=== PATIENT | male | born 1955 | race African-American/Black ===

== ENCOUNTER 2018-12-24 21:39 | Emergency (ER) | payer BC ==
[~2018-12-24 21:39] MED LIST: ISOVUE-370 76%-LOCM 1 ML ONE
[2018-12-24 22:56] LABS: #Basophils 0.1 thou/uL (0.0-0.2); #Eosinphils 0.4 thou/uL (0.0-0.7); #Lymphocytes 2.7 thou/uL (1.20-3.40); #Neutrophils 5.6 thou/uL (1.40-6.50); %Basophils 0.9 % (0.0-1.0); %Eosinophils 3.7 % (0.0-10.0); %Lymphocytes 27.6 % (21.0-51.0); %Monocytes 10.2 % (0.0-10.0); %Neutrophils 57.7 % (42.0-75.0); Hemoglobin 8.7 g/dL (14.0-18.0); Mean Corpuscular HGB CONC 33.3 g/dL (32.0-36.0); Mean Corpuscular Hemoglobin 32.1 pg (27.0-31.0); Mean Corpuscular Volume 96.4 fL (78.0-98.0); Mean Platelet Volume 7.5 fL (7.4-10.4); Platelet Count 253 thou/uL (130-400); RBC Distribution Width 11.3 % (11.5-14.5); Red Blood Cell (RBC) Count 2.72 mill/uL (4.70-6.10); White Blood Cell (WBC) Count 9.7 thou/uL (4.8-10.8)
[2018-12-24 23:16] LABS: ALT (SGPT) 36 U/L (8-55); AST (SGOT) 36 U/L (5-34); Albumin 3.5 g/dL (3.4-4.8); Alkaline Phosphatase 113 U/L (40-150); Anion Gap 12 mmol/L (10-20); BUN (Urea Nitrogen) 10 mg/dL (8.4-25.7); Bilirubin, Total 1.4 mg/dL (0.2-1.2); Calc. Creatinine Clearance 0 mL/min (70-130); Calcium 9.2 mg/dL (7.8-10.44); Carbon Dioxide 27 mmol/L (23-31); Chloride 101 mmol/L (98-107); Estimated GFR-MDRD Greater than 90; Globulin 3.2 g/dL (2.4-3.5); Glucose 115 mg/dL (80-115); Potassium 4.4 mmol/L (3.5-5.1); Protein, Total 6.7 g/dL (5.8-8.1); Sodium 136 mmol/L (136-145)
--- NOTE | 2018-12-24 23:59 | ULT ---
VENOUS ULTRASOUND OF THE RIGHT LOWER EXTREMITY: History: Right leg pain, edema. Right knee replacement one week ago. Technique: Grayscale, color flow, and spectral doppler imaging of the deep venous system of the right lower extremity was performed. FINDINGS: There is good flow, compression, and augmentation of the right common femoral, femoral, deep femoral, popliteal and posterior tibial and greater saphenous veins. IMPRESSION: No evidence of DVT in the right lower extremity. POS: [facility]
[2018-12-25] MEDS ORDERED: Morphine 4 MG/ML VIAL ONE (01:59)
[2018-12-25] MEDS ORDERED: Ondansetron PF 4 MG/2 ML Vial ONE (01:59)
[2018-12-25] MEDS ORDERED: Piperacillin/Tazobactam 4.5 GM VIAL ONE (02:15)
[2018-12-25] MEDS ORDERED: Sodium Chloride 0.9% 100 ML ONE (02:16)
--- NOTE | 2018-12-25 07:56 | CT ---
PRELIMINARY REPORT/[facility]/EMERGENCY AFTER HOURS PROCEDURE: EXAM: CT Right Lower Extremity With Contrast EXAM DATE/TIME: 12/25/2018 12:14 AM CLINICAL HISTORY: 63 years old, male; Pain; Right; Patient HX: 63m presents to the ED with C/O worsening swelling, brui sing, and "tightness" to the e S/P total knee replacement appr 7 days ago. PT states that he has on ly been doing rehab exercises and been on the machine prescribed. PT denies any trauma or injury. PT states that he feels a tightness increasing in his leg. PT also reports that he had fever of 101 on TECHNIQUE: Imaging protocol: CT of the Right lower extremity with intravenous contrast was performed. COMPARISON: No relevant prior studies available. FINDINGS: Bones/joints: Knee prosthesis. There is a collection of fluid and gas extending from the suprapatella r joint space into the deep musculature of the anterior compartment of the thigh, consistent with abs cess. Soft tissues: Gas and contusion/edema in the prepatellar subcutaneous tissue, subjacent to the skin s taples. Vasculature: No vascular thrombosis. IMPRESSION: 1. There is a collection of fluid and gas extending from the suprapatellar joint space into the deep musculature of the anterior compartment of the thigh, consistent with abscess. 2. Gas and contusion/edema in the prepatellar subcutaneous tissue, subjacent to the skin jamal. Thank you for allowing us to participate in the care of your patient. Dictated and Authenticated by: Shyam Lima MD 12/25/2018 12:47 AM Central Time ([place] & [place]) FINAL REPORT RIGHT LOWER EXTREMITY CT SCAN WITH IV CONTRAST: EMERGENCY AFTER HOURS EXAM TIME: 12:14 a.m. DATE: 12/25/2018. Recent total knee arthroplasty changes with some suprapatellar joint fluid as well as some fluid and gas from the suprapatellar recess extending into the deep musculature of the anterior compartment of the thigh. This is certainly concerning for the possibility of infection. The amount of abnormal fl uid and air seems certainly more prominent than typically seen with routine post knee arthroplasty ch jessica. Correlate clinically, particularly in regards to time from the knee arthroplasty. This report is in agreement with the preliminary report. POS: [facility]
== END 2018-12-25 05:40 | disposition short-term general hospital (02) ==
LOC: ERS 21:39
DX: L02.415 Cutaneous abscess of right lower limb (principal); D64.9 Anemia, unspecified; J45.909 Unspecified asthma, uncomplicated; Z79.899 Other long term (current) drug therapy
CPT/HCPCS: 36415; 80053; 85025; 87040; 96365; 96367; 96375; J2270; J2405; J2543; J3370; J3490; Q9966

== ENCOUNTER 2024-05-13 17:53 | Emergency (ER) | payer MEDICARE, OTHER ==
[2024-05-13 18:27] LABS: Bacteria/HPF Rare-Few HPF (None Seen); Bilirubin Negative (Negative); Blood, Urine Negative (Negative); CAUTI Indications for Culture Fever or rigors; Clarity Clear (Clear); Glucose, Urine (Dipstick) Normal (Negative); Ketone, Urine Negative (Negative); Leukocyte 250 Leu/uL (Negative); Nitrite Negative (Negative); Protein, Urine (Dipstick) Negative (Neg-Trace); RBC/HPF 0-3 HPF (0-3); Specific Gravity, Urine 1.003 (1.002-1.036); Squamous Epithelial None Seen HPF (0-3); Urobilinogen Normal mg/dL (Less than 2); WBC/HPF Greater than 50 HPF (0-3); pH, Urine 6.5 (5.0-9.0)
[2024-05-13 18:28] LABS: Urine Culture Reflex Yes Yes
[2024-05-13 19:04] LABS: #Basophils 0.04 10x3/uL (0.0-0.2); %Basophils 0.6 % (0.0-1.0); %Eosinophils 2.5 % (0.0-10.0); %Lymphocytes 33.2 % (21.0-51.0); %Monocytes 7.3 % (0.0-10.0); %Neutrophils 56.1 % (42.0-75.0); Hematocrit 37.5 % (42.0-52.0); Hemoglobin 12.1 g/dL (14.0-18.0); Mean Corpuscular HGB CONC 32.3 g/dL (32.0-36.0); Mean Corpuscular Hemoglobin 30.3 pg (27.0-31.0); Mean Platelet Volume 10.9 fL (7.4-10.4); Platelet Count 166 10x3/uL (130-400); RBC Distribution Width 12.6 % (11.5-14.5); Red Blood Cell (RBC) Count 3.99 mill/uL (4.70-6.10)
[2024-05-13 19:19] LABS: ALT (SGPT) 16 U/L (8-55); AST (SGOT) 19 U/L (5-34); Albumin 3.6 g/dL (3.4-4.8); Alkaline Phosphatase 106 U/L (40-110); Anion Gap 13 mmol/L (10-20); BUN (Urea Nitrogen) 9 mg/dL (8.4-25.7); Bilirubin, Total 0.8 mg/dL (0.2-1.2); Calc. Creatinine Clearance 0 mL/min (70-130); Calcium 8.8 mg/dL (7.8-10.44); Carbon Dioxide 25 mmol/L (23-31); Chloride 104 mmol/L (98-107); Estimated GFR 95; Globulin 3.8 g/dL (2.4-3.5); Glucose 93 mg/dL (80-115); Magnesium 1.7 mg/dL (1.6-2.6); Potassium 3.9 mmol/L (3.5-5.1); Protein, Total 7.4 g/dL (5.8-8.1); Sodium 138 mmol/L (136-145)
[2024-05-13 19:25] LABS: Troponin I 0.019 ng/mL (< 0.028)
== END 2024-05-13 21:44 | disposition home or self-care (01) ==
LOC: ERS 17:53
DX: N39.0 Urinary tract infection, site not specified (principal); I10 Essential (primary) hypertension; Z79.899 Other long term (current) drug therapy
CPT/HCPCS: 36415; 71045; 80053; 81001; 83735; 83880; 84484; 85025; 87077; 87086; 87186; 93005

== ENCOUNTER 2025-04-10 14:32 | Emergency (ER) | payer OTHER ==
[2025-04-10] MEDS ORDERED: Ondansetron PF 4 MG/2 ML Vial ONE (15:33)
[2025-04-10] MEDS ORDERED: Aspirin Chewable 81 MG TAB ONE (15:33)
[2025-04-10] MEDS ORDERED: Ketorolac Tromethamine 30 MG (1 mL) VIAL ONE (15:40)
[2025-04-10 15:55] LABS: #Basophils 0.03 10x3/uL (0.0-0.2); #Eosinophils 0.14 10x3/uL (0.0-0.7); #Monocytes 0.53 10x3/uL (0.11-0.59); #Neutrophils 2.80 10x3/uL (1.40-6.50); %Basophils 0.5 % (0.0-1.0); %Eosinophils 2.4 % (0.0-10.0); %Lymphocytes 40.9 % (21.0-51.0); %Monocytes 8.9 % (0.0-10.0); %Neutrophils 47.1 % (42.0-75.0); Hematocrit 38.5 % (42.0-52.0); Hemoglobin 12.7 g/dL (14.0-18.0); Mean Corpuscular Hemoglobin 29.8 pg (27.0-31.0); Mean Corpuscular Volume 90.4 fL (78.0-98.0); Platelet Count 183 10x3/uL (130-400); Red Blood Cell (RBC) Count 4.26 mill/uL (4.70-6.10); White Blood Cell (WBC) Count 5.94 10x3/uL (4.8-10.8)
[2025-04-10 16:14] LABS: ALT (SGPT) 16 U/L (Less than 45); AST (SGOT) 28 U/L (11-34); Albumin 3.8 g/dL (3.1-4.5); Alkaline Phosphatase 115 U/L (40-110); Anion Gap 11 mmol/L (10-20); BUN (Urea Nitrogen) 10 mg/dL (8.4-25.7); Bilirubin, Total 0.7 mg/dL (0.3-1.2); Calc. Creatinine Clearance 0 mL/min (70-130); Calcium 9.2 mg/dL (7.8-10.44); Carbon Dioxide 24 mmol/L (23-31); Chloride 109 mmol/L (98-107); Globulin 3.5 g/dL (2.4-3.5); Glucose 129 mg/dL (80-115); Lipase 13 U/L (8-78); Potassium 4.0 mmol/L (3.5-5.1); Sodium 140 mmol/L (136-145)
== END 2025-04-10 17:42 | disposition home or self-care (01) ==
LOC: ERS 14:32
DX: I10 Essential (primary) hypertension (principal); M25.512 Pain in left shoulder; Z55.6 Problems related to health literacy; Z79.899 Other long term (current) drug therapy
CPT/HCPCS: 71045; 80053; 83690; 84484; 85025; 93005; 96374; J1885; J2270; J2405